=== PATIENT | female | born 1960 | race Two or more races ===

== ENCOUNTER 2024-10-31 11:06 | Emergency (ER) | payer OTHER ==
[~2024-10-31] VITALS: Ht 149.9 cm; Wt 39.0 kg
[2024-10-31] MEDS ORDERED: PROTONIX40 MG PO (11:32)
[2024-10-31] MEDS ORDERED: CARDIZEM30 MG PO (11:33)
[2024-10-31 11:35] VITALS: BP 113/71; O2SAT 100
[2024-10-31] MEDS ORDERED: FAMOTIDINE/PF 20 MG in 0.9 % SODIUM CHLORIDE 8 ML IV PUSH STA (12:15)
[2024-10-31] MEDS ORDERED: ONDANSETRON HCL 2 MG/ML VIAL IV ONE (12:15)
[2024-10-31] MEDS ORDERED: KETOROLAC TROMETHAMINE 30 MG VIAL IV ONE (12:30)
[2024-10-31] MEDS ORDERED: 0.9 % SODIUM CHLORIDE 1,000 ML IV SCH (12:30)
[2024-10-31] MEDS ORDERED: KETOROLAC TROMETHAMINE 30 MG VIAL ONE (12:36)
[2024-10-31] MEDS ORDERED: ONDANSETRON HCL 2 MG/ML VIAL ONE (12:37)
[2024-10-31] MEDS ORDERED: FAMOTIDINE/PF 20 MG/2 ML VIAL ONE (12:37)
[2024-10-31 13:52] LABS: HEMOGLOBIN 12.3 g/dL (12.0-15.00); MEAN CELL VOLUME 87.4 fL (80.00-100.00); MEAN CORPUSCULAR HEMOGLOBIN 29.8 pg (27.00-32.0); MEAN CORPUSCULAR HGB CONC 34.1 g/dl (32.0-36.0); PLATELET COUNT 199 K/uL (150-450); RED BLOOD COUNT 4.12 M/uL (4.00-6.00); RED CELL DISTRIBUTION WIDTH 13.3 % (11.5-14.5)
[2024-10-31 14:35] LABS: ALBUMIN 4.1 gm/dL (3.4-5.0); BILIRUBIN TOTAL 0.6 mg/dL (0.3-1.2); BILIRUBIN,CONJUGATED 0.13 mg/dL (0.0-0.2); BILIRUBIN,UNCONJUGATED 0.47 mg/dL (0.0-0.6); CALCIUM 9.3 mg/dL (8.5-10.1); CREATININE SERUM 0.64 mg/dL (0.55-1.02); GFR 93.72; GLOBULINA 3.4 G/DL (2.4-3.5); POTASSIUM 3.52 mEq/L (3.5-5.1); TOTAL PROTEIN 7.5 gm/dL (6.4-8.2)
[2024-10-31] MEDS ORDERED: PEPCID AC20 MG PO (15:44)
== END 2024-10-31 16:50 | disposition home or self-care (01) ==
LOC: ER 11:09
PROVIDERS: General Practice
DX: K52.89 Other specified noninfective gastroenteritis and colitis (principal); Z88.0 Allergy status to penicillin